=== PATIENT | male | born 1970 | race Caucasian/White ===

== ENCOUNTER 2018-06-15 06:15 | Day surgery (SDC) | payer BC, OTHER ==
[2018-06-15] MEDS ORDERED: Lactated Ringers 1,000 ML IV SCH (07:00)
[2018-06-15] MEDS ORDERED: Midazolam 1 MG/ML 2 ML SDV ONE (07:31)
[2018-06-15] MEDS ORDERED: Propofol 200 MG/20 ML SDV ONE ×2 (07:31→07:52)
[2018-06-15] MEDS ORDERED: fentaNYL 100 MCG/2 ML SDV ONE (07:31)
--- NOTE | 2018-06-15 10:17 | OR ---
DATE OF PROCEDURE: 06/15/2018 SURGEON: Lexx Peña MD PREOP DIAGNOSIS: Colon cancer screening, blood in stool. POSTOPERATIVE DIAGNOSIS: Diverticulosis, colon cancer screening, blood in stool. PROCEDURE: Colonoscopy to the cecum. ANESTHESIA: IV anesthesia with monitored anesthesia care. INDICATION: This 48-year-old white male is referred for a colonoscopy. He a week and half ago noted some blood in his stool. He has never had a colonoscopic exam. I counseled him for the procedure including risks and alternatives, and he gave his informed consent to proceed. PROCEDURE DETAILS: The patient was placed in the left lateral decubitus position. IV anesthesia was administered by the Anesthesia Service. Time-out was held. A rectal exam was performed, which was unremarkable. The flexible video Olympus colonoscope was introduced through his anus, up his rectum and out his colon all way to the cecum. En- route, we saw a few scattered left-sided diverticula. There was no bleeding or inflammation associated with them. Once the cecum was reached, the scope was slowly withdrawn examining the mucosa throughout. No other mucosal abnormalities were noted. The scope was retroflexed in the rectum with the distal rectum showing some minor hemorrhoidal tissue. The scope was straightened and removed. He tolerated the procedure well. Lexx Peña MD /[id number]
== END 2018-06-15 09:05 | disposition home or self-care (01) ==
LOC: JP.SDS 06:15
PROVIDERS: ATTEND Surgery
DX: K92.1 Melena (principal); K57.30 Diverticulosis of large intestine without perforation or abscess without bleeding; K64.9 Unspecified hemorrhoids; Z88.0 Allergy status to penicillin
CPT/HCPCS: 45378; J2250; J2704; J3010; J7120